=== PATIENT | male | born 1975 | race Hispanic/Latino ===

== ENCOUNTER 2017-11-28 19:30 | Emergency (ER) | payer OTHER ==
[2017-11-28] MEDS ORDERED: LIDOCAINE HCL 1% 20 ML VIAL ONE (20:26)
[2017-11-28] MEDS ORDERED: CEPHALEXIN 500 MG CAPSULE ONE (21:04)
[2017-11-29] MEDS ORDERED: GUAIFENESIN-CODEINE 5 ML SYRUP ONE (04:33)
== END 2017-11-28 21:16 | disposition home or self-care (01) ==
LOC: EDH 19:30
DX: S61.216A Laceration without foreign body of right little finger without damage to nail, initial encounter (principal); S61.412A Laceration without foreign body of left hand, initial encounter; S61.214A Laceration without foreign body of right ring finger without damage to nail, initial encounter; W25.XXXA Contact with sharp glass, initial encounter; Y93.89 Activity, other specified; Y92.89 Other specified places as the place of occurrence of the external cause; Y99.8 Other external cause status
CPT/HCPCS: 12031; 12041; 73130

== ENCOUNTER 2018-09-11 18:25 | Emergency (ER) | payer OTHER ==
[2018-09-11] MEDS ORDERED: IBUPROFEN 600 MG TABLET ONE (18:59)
== END 2018-09-11 19:45 | disposition home or self-care (01) ==
LOC: EDH 18:25
DX: S83.8X1A Sprain of other specified parts of right knee, initial encounter (principal); Z72.0 Tobacco use; X50.1XXA Overexertion from prolonged static or awkward postures, initial encounter; Y93.02 Activity, running; Y92.410 Unspecified street and highway as the place of occurrence of the external cause; Y99.8 Other external cause status
CPT/HCPCS: 73562

== ENCOUNTER 2020-12-05 16:46 | Inpatient (IN) | payer OTHER ==
[~2020-12-05] VITALS: Ht 172.7 cm; Wt 87.1 kg
[2020-12-05 17:58] LABS: BASOPHILS % (AUTO) 0.4 % (0.0-5.0); LYMPHOCYTES % (AUTO) 12.7 % (21.0-51.0); MEAN CORPUSCULAR HEMOGLOBIN 29.7 pg (27.0-33.0); MEAN CORPUSCULAR HGB CONC 34.5 g/dL (32.0-36.0); MEAN CORPUSCULAR VOLUME 86.1 fL (79-99); MONOCYTES % (AUTO) 5.8 % (3.0-13.0); NEUTROPHILS % (AUTO) 80.7 % (40.0-77.0); PLATELET COUNT (AUTO) 190 K/uL (130-400); RED BLOOD CELL COUNT(AUTO) 4.88 MIL/uL (4.50-6.20); RED CELL DISTRIBUTION WIDTH 13.4 % (11.0-15.5)
[2020-12-05] MEDS ORDERED: 0.9%NACL 1000ML 2,000 ML IV ONE (17:58)
[2020-12-05] MEDS ORDERED: ZOSYN 3.375GM+NS 50ML 50 ML IV ONE (18:00)
[2020-12-05] MEDS ORDERED: IBUPROFEN 600 MG TABLET ONE (18:00)
[2020-12-05] MEDS ORDERED: ACETAMINOPHEN 325 MG TAB ONE (18:00)
[2020-12-05] MEDS ORDERED: TETANUS/DIPHTHERIA TOXOID [ADULT] 0.5 ML VIAL IM ONE (18:01)
[2020-12-05 18:10] LABS: CREATININE 1.5 mg/dL (0.5-1.5); POTASSIUM 4.3 mmol/L (3.5-5.1)
[2020-12-05 18:11] LABS: PROTHROMBIN TIME 10.9 SEC (9.6-11.6)
[2020-12-05 18:12] LABS: PARTIAL THROMBOPLASTIN TIME 28.5 SEC (26.3-35.5)
[2020-12-05 18:15] LABS: ALBUMIN 3.2 g/dL (3.5-5.0); BILIRUBIN,TOTAL 0.6 mg/dL (0.2-1.0); TOTAL PROTEIN, SERUM 7.4 g/dL (6.0-8.3)
[2020-12-05 18:19] LABS: CREATINE KINASE, TOTAL 120 U/L (21-232); MYOGLOBIN 56 ng/mL (10-92); TROPONIN I < 0.04 ng/mL (0.00-0.06)
[2020-12-05 18:21] LABS: APPEARANCE,URINE Clear (CLEAR); BILIRUBIN,URINE Negative (NEGATIVE); COLOR,URINE Yellow (YELLOW); GLUCOSE, URINE (UA) Negative (NEGATIVE); KETONES,URINE 40 mg/dL (NEGATIVE); LEUKOCYTE ESTERASE ,URINE Negative (NEGATIVE); NITRATE,URINE Negative (NEGATIVE); OCCULT BLOOD,URINE Negative (NEGATIVE); PH,URINE 5.5 (5.0-8.0); PROTEIN,URINE POS 1+ mg/dL (NEGATIVE)
[2020-12-05 18:48] LABS: BACTERIA,URINE Rare /HPF (None Seen); RBC,URINE 0-1 /HPF (0-1); SQUAMOUS EPITHELIAL CELL,UR Rare /HPF (0-2); WBC,URINE 0-1 /HPF (0-1)
[2020-12-05] MEDS ORDERED: VANCOMYCIN 1G/250ML KIT 250 ML IV ONE (19:52)
[2020-12-05] MEDS ORDERED: LACTULOSE 20 GM/30 ML UDCUP PO PRN (21:45)
[2020-12-05] MEDS: 0.9%NACL 1000ML 1,000 ML IV SCH (21:45)
[2020-12-05] MEDS ORDERED: ONDANSETRON 4MG INJ IV PRN (21:45)
[2020-12-06] MEDS ORDERED: 0.9%NACL 1000ML 1,000 ML IV ONE (00:01)
[2020-12-06] MEDS ORDERED: KETOROLAC 30MG VIAL (30MG/ML) ONE (02:54)
[2020-12-06] MEDS ORDERED: ACETAMINOPHEN 325 MG TAB ONE (02:58)
[2020-12-06] MEDS ORDERED: CLINDAMYCIN IVPB 600MG/50ML 50 ML IV ONE (03:38)
[2020-12-06 03:50] VITALS: BP 127/65
[2020-12-06] MEDS: 0.9%NACL 1000ML 1,000 ML IV SCH ×3 (05:45→17:12)
[2020-12-06 05:58] LABS: BASOPHILS % (AUTO) 0.4 % (0.0-5.0); HEMATOCRIT 37.4 % (42-54); LYMPHOCYTES % (AUTO) 13.7 % (21.0-51.0); MEAN CORPUSCULAR HEMOGLOBIN 29.9 pg (27.0-33.0); MEAN CORPUSCULAR HGB CONC 34.5 g/dL (32.0-36.0); MEAN CORPUSCULAR VOLUME 86.6 fL (79-99); MONOCYTES % (AUTO) 8.5 % (3.0-13.0); NEUTROPHILS % (AUTO) 76.7 % (40.0-77.0); PLATELET COUNT (AUTO) 160 K/uL (130-400); RED BLOOD CELL COUNT(AUTO) 4.32 MIL/uL (4.50-6.20); RED CELL DISTRIBUTION WIDTH 13.4 % (11.0-15.5); WHITE BLOOD COUNT (AUTO) 4.6 K/uL (4.8-10.8)
[2020-12-06 07:13] LABS: ERYTHROCYTE SEDIMENTATION RATE 8 MM/HR (0-15)
[2020-12-06] MEDS: METOPROLOL TARTRATE 25 MG TAB PO SCH ×2 (09:00→20:28)
[2020-12-06] MEDS: FAMOTIDINE 20MG TAB PO SCH ×2 (09:12→20:26)
[2020-12-06 09:14] VITALS: BP 120/74
[2020-12-06] MEDS: ACETAMINOPHEN 325 MG TAB PO PRN ×3 (11:12→22:39)
[2020-12-06 11:54] VITALS: BP 147/94
[2020-12-06 12:20] LABS: BASOPHILS % (AUTO) 0.5 % (0.0-5.0); HEMATOCRIT 40.2 % (42-54); LYMPHOCYTES % (AUTO) 12.5 % (21.0-51.0); MEAN CORPUSCULAR HEMOGLOBIN 29.3 pg (27.0-33.0); MEAN CORPUSCULAR HGB CONC 34.1 g/dL (32.0-36.0); MEAN CORPUSCULAR VOLUME 86.1 fL (79-99); MONOCYTES % (AUTO) 6.9 % (3.0-13.0); NEUTROPHILS % (AUTO) 79.6 % (40.0-77.0); PLATELET COUNT (AUTO) 169 K/uL (130-400); RED BLOOD CELL COUNT(AUTO) 4.67 MIL/uL (4.50-6.20); RED CELL DISTRIBUTION WIDTH 13.5 % (11.0-15.5); WHITE BLOOD COUNT (AUTO) 3.9 K/uL (4.8-10.8)
[2020-12-06] MEDS: CLINDAMYCIN IVPB 600MG/50ML 50 ML IV SCH ×2 (13:27→20:26)
[2020-12-06 16:45] VITALS: BP 146/86
[2020-12-06 19:53] VITALS: BP 129/66
[2020-12-06 23:32] VITALS: BP 118/68
[2020-12-07 03:49] VITALS: BP 152/76
[2020-12-07] MEDS: 0.9%NACL 1000ML 1,000 ML IV SCH ×3 (03:59→20:53)
[2020-12-07] MEDS: ACETAMINOPHEN 325 MG TAB PO PRN (03:59)
[2020-12-07] MEDS: CLINDAMYCIN IVPB 600MG/50ML 50 ML IV SCH ×2 (04:00→12:40)
[2020-12-07 05:48] LABS: BASOPHILS % (AUTO) 0.5 % (0.0-5.0); HEMATOCRIT 35.9 % (42-54); LYMPHOCYTES % (AUTO) 14.6 % (21.0-51.0); MEAN CORPUSCULAR HEMOGLOBIN 29.2 pg (27.0-33.0); MEAN CORPUSCULAR HGB CONC 34.5 g/dL (32.0-36.0); MEAN CORPUSCULAR VOLUME 84.5 fL (79-99); NEUTROPHILS % (AUTO) 77.4 % (40.0-77.0); PLATELET COUNT (AUTO) 159 K/uL (130-400); RED BLOOD CELL COUNT(AUTO) 4.25 MIL/uL (4.50-6.20); RED CELL DISTRIBUTION WIDTH 13.2 % (11.0-15.5); WHITE BLOOD COUNT (AUTO) 4.1 K/uL (4.8-10.8)
[2020-12-07 06:01] LABS: CREATININE 1.5 mg/dL (0.5-1.5)
[2020-12-07 06:22] LABS: POTASSIUM 2.9 mmol/L (3.5-5.1)
[2020-12-07] MEDS ORDERED: POTASSIUM CHLORIDE 10% ELIXIR 20 MEQ/15 ML UDCUP PO PRN (06:45)
[2020-12-07] MEDS ORDERED: POTASSIUM CHLORIDE 10MEQ/100ML 100 ML IV PRN (06:45)
[2020-12-07] MEDS ORDERED: LIDOCAINE HCL-MPF 1% 2ML VIAL IV PRN (06:45)
[2020-12-07 08:00] VITALS: BP 128/71
[2020-12-07] MEDS: METOPROLOL TARTRATE 25 MG TAB PO SCH ×2 (10:08→20:52)
[2020-12-07] MEDS: FAMOTIDINE 20MG TAB PO SCH ×2 (10:08→20:53)
[2020-12-07] MEDS: KCL 20 MEQ ERTAB PO PRN ×2 (10:09→20:54)
[2020-12-07 12:57] VITALS: BP 133/79
[2020-12-07] MEDS: CEFEPIME HCL 1 GM VIAL IVP SCH ×2 (13:15→20:52)
[2020-12-07] MEDS ORDERED: VANCOMYCIN PROTOCOL PER PHARMACY IV SCH (13:15)
[2020-12-07] MEDS ORDERED: COMPOUND IV REFRIGERATED 1 EACH IVSOLN MISC PRN (13:15)
[2020-12-07] MEDS ORDERED: VANCOMYCIN 1G 2 GM in 0.9% NACL 500ML IV.SOLN 500 ML IV ONE (13:30)
[2020-12-07 16:38] VITALS: BP 143/81
[2020-12-07] MEDS ORDERED: [UNRECOGNIZED DRUG - REMARK] MISC SCH ×2 (17:00→18:00)
[2020-12-07] MEDS: KETOROLAC 30MG VIAL (30MG/ML) IV PRN (19:00)
[2020-12-07 20:14] VITALS: BP 120/71
[2020-12-07] MEDS ORDERED: VANCOMYCIN 750MG + NS 250 ML IV SCH ×2 (21:00)
[2020-12-08] VITALS (24 sets, daily range): BP systolic 95–160; BP diastolic 58–96
[2020-12-08] MEDS: ACETAMINOPHEN 325 MG TAB PO PRN ×3 (03:49→23:25)
[2020-12-08] MEDS: KETOROLAC 30MG VIAL (30MG/ML) IV PRN ×2 (04:03→23:25)
[2020-12-08] MEDS: CEFEPIME HCL 1 GM VIAL IVP SCH ×3 (04:20→20:08)
[2020-12-08] MEDS: 0.9%NACL 1000ML 1,000 ML IV SCH ×3 (04:20→20:08)
[2020-12-08] MEDS: NACL 0.9% IV SCH ×2 (05:01→17:18)
[2020-12-08] MEDS: VANCOMYCIN IV SCH ×2 (05:01→17:18)
[2020-12-08 05:17] LABS: BASOPHILS % (AUTO) 0.4 % (0.0-5.0); HEMATOCRIT 36.4 % (42-54); LYMPHOCYTES % (AUTO) 15.1 % (21.0-51.0); MEAN CORPUSCULAR HEMOGLOBIN 29.1 pg (27.0-33.0); MEAN CORPUSCULAR HGB CONC 34.3 g/dL (32.0-36.0); MEAN CORPUSCULAR VOLUME 84.8 fL (79-99); MONOCYTES % (AUTO) 6.8 % (3.0-13.0); NEUTROPHILS % (AUTO) 76.9 % (40.0-77.0); PLATELET COUNT (AUTO) 152 K/uL (130-400); RED BLOOD CELL COUNT(AUTO) 4.29 MIL/uL (4.50-6.20); RED CELL DISTRIBUTION WIDTH 13.4 % (11.0-15.5)
[2020-12-08 05:22] LABS: CREATININE 1.4 mg/dL (0.5-1.5); POTASSIUM 3.4 mmol/L (3.5-5.1)
[2020-12-08] MEDS: FAMOTIDINE 20MG TAB PO SCH ×2 (09:00→20:07)
[2020-12-08] MEDS: METOPROLOL TARTRATE 25 MG TAB PO SCH ×2 (09:52→20:06)
[2020-12-08] MEDS ORDERED: LIDOCAINE PF 100MG/5ML (2%) SYRINGE 5ML ONE (13:14)
[2020-12-08] MEDS ORDERED: PROPOFOL 10 MG/ML 20ML VIAL IV ONE (13:14)
[2020-12-08] MEDS ORDERED: FENTANYL CITRATE PF 50 MCG/1 ML 2ML VIAL ONE (13:15)
[2020-12-08] MEDS ORDERED: LIDOCAINE 1%-EPI 1:100,000 20 ML VIAL IJ ONE (13:22)
[2020-12-08] MEDS ORDERED: KETOROLAC 30MG VIAL (30MG/ML) ONE (14:23)
[2020-12-08] MEDS: KCL 20 MEQ ERTAB PO PRN (17:18)
[2020-12-09] MEDS: 0.9%NACL 1000ML 1,000 ML IV SCH ×3 (04:37→23:53)
[2020-12-09] MEDS: CEFEPIME HCL 1 GM VIAL IVP SCH ×3 (04:37→20:05)
[2020-12-09 05:04] VITALS: BP 121/73
[2020-12-09 06:08] LABS: BASOPHILS % (AUTO) 0.2 % (0.0-5.0); EOSINOPHILS % (AUTO) 0.2 % (0.0-8.0); HEMATOCRIT 37.6 % (42-54); LYMPHOCYTES % (AUTO) 19.5 % (21.0-51.0); MEAN CORPUSCULAR HEMOGLOBIN 29.7 pg (27.0-33.0); MEAN CORPUSCULAR HGB CONC 34.6 g/dL (32.0-36.0); MEAN CORPUSCULAR VOLUME 85.8 fL (79-99); MONOCYTES % (AUTO) 7.1 % (3.0-13.0); NEUTROPHILS % (AUTO) 72.4 % (40.0-77.0); PLATELET COUNT (AUTO) 166 K/uL (130-400); RED BLOOD CELL COUNT(AUTO) 4.38 MIL/uL (4.50-6.20); RED CELL DISTRIBUTION WIDTH 13.7 % (11.0-15.5); WHITE BLOOD COUNT (AUTO) 5.2 K/uL (4.8-10.8)
[2020-12-09] MEDS: HYDROCODONE/ACETAMINOPHEN 10/325 MG TAB PO PRN ×3 (06:16→20:07)
[2020-12-09 06:23] LABS: CREATININE 1.4 mg/dL (0.5-1.5); POTASSIUM 3.8 mmol/L (3.5-5.1)
[2020-12-09] MEDS: VANCOMYCIN IV SCH ×2 (06:52→19:01)
[2020-12-09] MEDS: NACL 0.9% IV SCH ×2 (06:52→19:01)
[2020-12-09] MEDS: METOPROLOL TARTRATE 25 MG TAB PO SCH ×2 (09:00→20:05)
[2020-12-09] MEDS: FAMOTIDINE 20MG TAB PO SCH (09:36)
[2020-12-09] MEDS: ACETAMINOPHEN 325 MG TAB PO PRN ×2 (09:39→20:06)
[2020-12-09 10:26] VITALS: BP 149/83
[2020-12-09] MEDS ORDERED: DOXYCYCLINE 100MG+NS 250ML 250 ML IV SCH (11:45)
[2020-12-09] MEDS ORDERED: VANCOMYCIN 1G 1.75 GM in 0.9% NACL 250ML 250 ML IV SCH (12:00)
[2020-12-09 12:51] VITALS: BP 136/87
[2020-12-09 17:47] VITALS: BP 114/79
[2020-12-09 20:00] VITALS: BP 157/91
[2020-12-09] MEDS: DOXYCYCLINE 100MG+NS 250ML 250 ML IV SCH (20:05)
[2020-12-10] VITALS (7 sets, daily range): BP systolic 98–147; BP diastolic 51–88
[2020-12-10] MEDS: HYDROCODONE/ACETAMINOPHEN 10/325 MG TAB PO PRN ×4 (00:13→19:57)
[2020-12-10] MEDS: ACETAMINOPHEN 325 MG TAB PO PRN ×3 (00:14→19:57)
[2020-12-10] MEDS: NACL 0.9% IV SCH ×2 (05:08→17:40)
[2020-12-10] MEDS: VANCOMYCIN IV SCH ×2 (05:08→17:40)
[2020-12-10] MEDS: CEFEPIME HCL 1 GM VIAL IVP SCH ×3 (05:09→19:55)
[2020-12-10] MEDS: 0.9%NACL 1000ML 1,000 ML IV SCH ×3 (05:09→21:56)
[2020-12-10 05:52] LABS: BASOPHILS % (AUTO) 0.3 % (0.0-5.0); HEMATOCRIT 33.4 % (42-54); LYMPHOCYTES % (AUTO) 12.3 % (21.0-51.0); MEAN CORPUSCULAR HEMOGLOBIN 29.8 pg (27.0-33.0); MEAN CORPUSCULAR HGB CONC 34.7 g/dL (32.0-36.0); MEAN CORPUSCULAR VOLUME 85.9 fL (79-99); MONOCYTES % (AUTO) 5.2 % (3.0-13.0); NEUTROPHILS % (AUTO) 81.4 % (40.0-77.0); PLATELET COUNT (AUTO) 159 K/uL (130-400); RED BLOOD CELL COUNT(AUTO) 3.89 MIL/uL (4.50-6.20); RED CELL DISTRIBUTION WIDTH 13.8 % (11.0-15.5); WHITE BLOOD COUNT (AUTO) 6.1 K/uL (4.8-10.8)
[2020-12-10 06:01] LABS: CREATININE 1.6 mg/dL (0.5-1.5); POTASSIUM 3.7 mmol/L (3.5-5.1)
[2020-12-10] MEDS: FAMOTIDINE 20MG TAB PO SCH (08:21)
[2020-12-10] MEDS: METOPROLOL TARTRATE 25 MG TAB PO SCH ×2 (08:23→19:56)
[2020-12-10] MEDS: DOXYCYCLINE 100MG+NS 250ML 250 ML IV SCH ×2 (10:34→19:55)
[2020-12-10] MEDS: KETOROLAC 30MG VIAL (30MG/ML) IV PRN (18:08)
[2020-12-10] MEDS ORDERED: VANCOMYCIN 500MG+NS 100ML 100 ML IV ONE (20:00)
[2020-12-11] MEDS: CEFEPIME HCL 1 GM VIAL IVP SCH ×3 (03:08→19:43)
[2020-12-11] MEDS ORDERED: VANCOMYCIN 1G/250ML KIT 0 ML IV ONE (04:06)
[2020-12-11 05:00] VITALS: BP 128/74
[2020-12-11 05:30] LABS: BASOPHILS % (AUTO) 0.4 % (0.0-5.0); EOSINOPHILS % (AUTO) 0.8 % (0.0-8.0); HEMATOCRIT 33.6 % (42-54); LYMPHOCYTES % (AUTO) 14.6 % (21.0-51.0); MEAN CORPUSCULAR HEMOGLOBIN 29.3 pg (27.0-33.0); MEAN CORPUSCULAR HGB CONC 34.2 g/dL (32.0-36.0); MEAN CORPUSCULAR VOLUME 85.5 fL (79-99); MONOCYTES % (AUTO) 4.6 % (3.0-13.0); NEUTROPHILS % (AUTO) 78.7 % (40.0-77.0); PLATELET COUNT (AUTO) 162 K/uL (130-400); RED BLOOD CELL COUNT(AUTO) 3.93 MIL/uL (4.50-6.20); RED CELL DISTRIBUTION WIDTH 13.8 % (11.0-15.5); WHITE BLOOD COUNT (AUTO) 7.6 K/uL (4.8-10.8)
[2020-12-11 05:36] LABS: CREATININE 1.4 mg/dL (0.5-1.5); POTASSIUM 3.9 mmol/L (3.5-5.1)
[2020-12-11] MEDS: ACETAMINOPHEN 325 MG TAB PO PRN (05:37)
[2020-12-11] MEDS: METOPROLOL TARTRATE 25 MG TAB PO SCH ×2 (08:44→19:43)
[2020-12-11] MEDS: VANCOMYCIN 1G/250ML KIT 250 ML IV SCH ×2 (08:44→19:43)
[2020-12-11] MEDS: FAMOTIDINE 20MG TAB PO SCH (08:44)
[2020-12-11 09:41] VITALS: BP 127/75
[2020-12-11] MEDS: DOXYCYCLINE 100MG+NS 250ML 250 ML IV SCH ×2 (10:42→19:43)
[2020-12-11 12:40] VITALS: BP 109/72
[2020-12-11] MEDS: HYDROCODONE/ACETAMINOPHEN 10/325 MG TAB PO PRN (16:23)
[2020-12-11 17:33] VITALS: BP 121/81
[2020-12-11 20:39] VITALS: BP 127/70
[2020-12-11 23:40] VITALS: BP 137/70
[2020-12-12 03:34] VITALS: BP 140/75
[2020-12-12] MEDS: CEFEPIME HCL 1 GM VIAL IVP SCH ×2 (04:22→13:15)
[2020-12-12 05:46] LABS: BASOPHILS % (AUTO) 0.4 % (0.0-5.0); EOSINOPHILS % (AUTO) 1.1 % (0.0-8.0); HEMATOCRIT 33.5 % (42-54); LYMPHOCYTES % (AUTO) 16.1 % (21.0-51.0); MEAN CORPUSCULAR HEMOGLOBIN 28.9 pg (27.0-33.0); MEAN CORPUSCULAR HGB CONC 34.3 g/dL (32.0-36.0); MEAN CORPUSCULAR VOLUME 84.2 fL (79-99); MONOCYTES % (AUTO) 4.4 % (3.0-13.0); NEUTROPHILS % (AUTO) 76.8 % (40.0-77.0); PLATELET COUNT (AUTO) 219 K/uL (130-400); RED BLOOD CELL COUNT(AUTO) 3.98 MIL/uL (4.50-6.20); RED CELL DISTRIBUTION WIDTH 13.6 % (11.0-15.5)
[2020-12-12 06:08] LABS: CREATININE 1.4 mg/dL (0.5-1.5); POTASSIUM 3.6 mmol/L (3.5-5.1)
[2020-12-12] MEDS: KCL 20 MEQ ERTAB PO PRN (06:13)
[2020-12-12 07:30] VITALS: BP 123/70
[2020-12-12] MEDS: DOXYCYCLINE 100MG+NS 250ML 250 ML IV SCH (09:32)
[2020-12-12] MEDS: FAMOTIDINE 20MG TAB PO SCH (09:32)
[2020-12-12] MEDS: METOPROLOL TARTRATE 25 MG TAB PO SCH (09:33)
[2020-12-12 11:00] VITALS: BP 124/79
[2020-12-12] MEDS ORDERED: VANCOMYCIN 1G 1.75 GM in 0.9% NACL 250ML 250 ML IV SCH (11:45)
[2020-12-12] MEDS ORDERED: VANCOMYCIN 1G/250ML KIT 250 ML IV SCH (21:00)
== END 2020-12-12 15:00 | disposition home or self-care (01) | DRG 854 ==
LOC: EDH 16:46 → EDHIP 21:39 → UNDOADMOB 21:39 → OBSVTOIN 21:39 → INTOOBSV 21:39 → EDHIP 12-06 03:56 → 3AH 12-06 03:56
PROVIDERS: ADMIT Internal Medicine; ATTEND Internal Medicine
PROC: 3E0234Z Introduction of Serum, Toxoid and Vaccine into Muscle, Percutaneous Approach (ICD-10-PCS; 2020-12-05)
PROC: 0L970ZZ Drainage of Right Hand Tendon, Open Approach (ICD-10-PCS; principal; 2020-12-08 13:55)
DX: A41.9 Sepsis, unspecified organism (principal); L02.511 Cutaneous abscess of right hand; L03.113 Cellulitis of right upper limb; L03.011 Cellulitis of right finger; N28.9 Disorder of kidney and ureter, unspecified; E87.6 Hypokalemia; R51.9 Headache, unspecified; M65.841 Other synovitis and tenosynovitis, right hand; Z20.822 Contact with and (suspected) exposure to COVID-19; E66.9 Obesity, unspecified; Z68.29 Body mass index [BMI] 29.0-29.9, adult; Z23 Encounter for immunization
CPT/HCPCS: 36415; 70450; 71045; 73218; 80048; 80053; 80202; 81001; 82550; 83605; 83874; 84132; 84145; 84484; 85025; 85610; 85651; 85730; 86140; 86757; 86900; 86901; 87040; 87070; 87076; 87088; 87205; 87426; 87804; 90714; 93005; 93971; G0378; J0692; J1885; J2001; J2543; J2704; J3010; J3370; J3490; J7030; J7040; J7050; J7120; U0003